=== PATIENT | male | born 2000 | race Caucasian/White ===

== ENCOUNTER → 2021-06-10 | Outpatient (CLI) | payer OTHER ==
--- NOTE | 2021-06-10 12:55 | Diagnostic Imaging Report ---
PROCEDURE: US Scrotum. TECHNIQUE: Multiple Real-time grayscale images were obtained over the scrotum in various projections bilaterally. INDICATION: Left testicular pain. FINDINGS: The right testicle measures 4.4 x 2.0 x 2.6 cm and the left testicle measures 4.5 x 1.7 x 3.1 cm. Both testes show homogeneous echotexture. No discrete testicular mass is identified. There is blood flow to both testes. The epididymides are unremarkable. No hydrocele is identified on either side. There is a left-sided varicocele present. No right varicocele is seen. IMPRESSION: 1. No evidence of testicular mass or vascular compromise. 2. Left varicocele. Dictated by: Dictated on workstation # [id number]
== END ==
LOC: RAD 11:00
PROVIDERS: ATTEND Nurse Practitioner Family
DX: I86.1 Scrotal varices (principal)
CPT/HCPCS: 76870